=== PATIENT | female | born 1950 | race Caucasian/White ===

== ENCOUNTER 2018-10-13 02:41 | Emergency (ER) | payer MEDICARE, BC ==
--- NOTE | 2018-10-13 02:54 | EDM.PDOC ---
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 Mid-Sternal Chest Pain Score (Numeric/FACES): 4 - Related Data Allergies Allergy/AdvReac Type Severity Reaction Status Date / Time atorvastatin [From Lipitor] Allergy Pain Verified 10/13/18 02:48 Penicillins Allergy Hives Verified 10/13/18 02:48 Home Meds: Home Meds Ramipril [Altace] 2.5 mg PO DAILY 10/13/18 [History] ED ROS GENERAL - Review of Systems Review Of Systems: ROS reveals no pertinent complaints other than HPI. ED EXAM, GENERAL - Physical Exam Exam: See Below Exam Limited By: No Limitations General Appearance: Alert, WD/WN, Mild Distress Ears: Hearing Grossly Normal Throat/Mouth: Normal Voice, No Airway Compromise Head: Atraumatic Neck: Non-Tender, Full Range of Motion Respiratory/Chest: No Respiratory Distress Cardiovascular: Irregularly Irregular GI/Abdominal: Soft, Non-Tender Neurological: Alert, Oriented, Normal Cognition, Normal Gait, No Motor/Sensory Deficits Psychiatric: Normal Affect, Normal Mood Skin Exam: Warm, Dry, Normal Color Lymphatic: No Adenopathy Course - Vital Signs Last Recorded V/S: Last Vital Signs Temp 36.8 C 10/13/18 02:44 Pulse 135 H 10/13/18 02:44 Resp 18 10/13/18 02:44 BP 167/96 H 10/13/18 02:44 Pulse Ox 100 10/13/18 02:44 - Orders/Labs/Meds Orders: Active Orders 24 hr Category Date Time Status EKG 12 Lead [EKG Documentation Completion] [RC] STAT Care 10/13/18 03:02 Active EKG Documentation Completion [RC] STAT Care 10/13/18 02:49 Active Labs: Laboratory Tests 10/13/18 10/13/18 Range/Units 02:55 02:55 WBC 7.1 (5.0-10.0) 10^3/uL RBC 4.23 (4.2-5.4) 10^6/uL Hgb 13.5 (12.0-16.0) g/dL Hct 38.2 (37.0-47.0) % MCV 90.3 (80-100) fL MCH 31.9 (27.0-34.0) pg MCHC 35.3 H (33.0-35.0) g/dL Plt Count 233 (150-450) 10^3/uL Neut % (Auto) 42.7 (42.2-75.2) % Lymph % (Auto) 44.5 (20.5-50.1) % Rooks % (Auto) 8.6 H (2-8) % Eos % (Auto) 3.4 H (1.0-3.0) % Baso % (Auto) 0.8 (0.0-1.0) % Sodium 137 (135-145) mmol/L Potassium 3.0 L (3.6-5.0) mmol/L Chloride 104 (101-111) mmol/L Carbon Dioxide 21.0 (21.0-31.0) mmol/L Anion Gap 15.0 BUN 20 H (7-18) mg/dL Creatinine 0.9 (0.6-1.3) mg/dL Est Cr Clr Drug Dosing 53.83 mL/min Estimated GFR (MDRD) > 60 BUN/Creatinine Ratio 22.22 Glucose 97 (74-105) mg/dL Calcium 9.6 (8.4-10.2) mg/dl Total Bilirubin 0.7 (0.2-1.0) mg/dL AST 18 (10-42) IU/L ALT 18 (10-60) IU/L Alkaline Phosphatase 66 (42-121) IU/L Troponin I < 0.02 (0.00-0.02) ng/ml Total Protein 7.1 (6.7-8.2) g/dl Albumin 4.3 (3.2-5.5) g/dl Globulin 2.8 Albumin/Globulin Ratio 1.54 - Re-Assessments/Exams Free Text/Narrative Re-Assessment/Exam: 10/13/18 03:46 re-exam; results discussed with pt who is feeling good now since conversion back to sinus rhythm. Departure - Departure Time of Disposition: 03:47 Disposition: Home, Self-Care 01 Condition: Good Clinical Impression: Atrial fibrillation Qualifiers: Atrial fibrillation type: unspecified Qualified Code(s): I48.91 - Unspecified atrial fibrillation Instructions: Atrial Fibrillation, [id number] Forms: ED Department Discharge Additional Instructions: 1) rest and avoid vigorous activities 2) notify family doctor tomorrow 3) recheck if there is any change or concern - My Orders Last 24 Hours: My Active Orders 10/13/18 02:49 EKG Documentation Completion [RC] STAT 10/13/18 03:02 EKG 12 Lead [EKG Documentation Completion] [RC] STAT - Assessment/Plan Last 24 Hours: My Active Orders 10/13/18 02:49 EKG Documentation Completion [RC] STAT 10/13/18 03:02 EKG 12 Lead [EKG Documentation Completion] [RC] STAT
[2018-10-13 03:19] LABS: CHLORIDE,CL 104 mmol/L (101-111); SODIUM,NA 137 mmol/L (135-145)
== END 2018-10-13 03:56 | disposition home or self-care (01) ==
LOC: DL.ED 02:41
DX: I48.91 Unspecified atrial fibrillation (principal); Z88.0 Allergy status to penicillin; Z88.8 Allergy status to other drugs, medicaments and biological substances
CPT/HCPCS: 36415; 80053; 84484; 85025; 93005; 99283; 99285-25